=== PATIENT | female | born 1955 | race Caucasian/White ===

== ENCOUNTER 2016-10-11 22:21 | Emergency (ER) | payer OTHER ==
[~2016-10-11] VITALS: Ht 165.1 cm; Wt 102.0 kg
[2016-10-11 22:37] VITALS: Ht 165.1 cm; Wt 102.0 kg
[2016-10-11] MEDS ORDERED: CLIN-73 PO (23:23)
[2016-10-11] MEDS ORDERED: DIPH28.32 TOP (23:24)
[2016-10-11] MEDS ORDERED: HYDR-906 PO (23:38)
[2016-10-11 23:45] VITALS: BP 186/88; PULSE 66; RESP 20; TEMP 98.2
[2016-10-12] MEDS ORDERED: HYDROCODONE/APAP (5/325) TAB PO ONE
[2016-10-12] MEDS ORDERED: IBUPROFEN 600 MG TAB PO ONE
--- NOTE | 2016-10-12 00:02 | ERD ---
ER Documentation Chief Complaint Date/Time DATE: 10/11/16 TIME: 23:58 Chief Complaint left ear pain tonight. +abscess outer ear HPI This is a 60-year-old female presents to the ER with left ear auricle pain. Patient states that she has had external otitis over the last month and has been on multiple drops for this, she is feeling better. Patient has a past medical history of recurrent external otitis infections and she also had a lot of otitis media and even mastoiditis and she was a child. Patient states that her ears are constantly itchy and she scratches at her ear auricle a couple of days ago and noticed that now the area has gotten red, painful to the touch and warm to the touch. Patient denies any fevers or chills. She denies any discharge from her ear. ROS 12 point review of systems was done, all negative except per HPI. Medications Home Meds Active Scripts Hydrocodone/Acetaminophen ([place] 5-325 Tablet) 1 Each Tablet, 1 TAB PO Q6H Y for PAIN, #10 TAB Prov:PAULA CHAVEZ 10/11/16 Diphenhydramine-Zinc* Topical (Diphenhydramine-Zinc* Topical) 1%-28 Gm Cream..g. , 1 APPLIC TOP QID for 3 Days, TUB Prov:PAULA CHAVEZ 10/11/16 Clindamycin Hcl* (Clindamycin Hcl*) 300 Mg Capsule, 300 MG PO TID for 10 Days, CAP Prov:PAULA CHAVEZ 10/11/16 Allergies Allergies: Coded Allergies: No Known Allergy (Unverified , 10/11/16) PMhx/Soc Medical and Surgical Hx: pt denies Medical Hx, pt denies Surgical Hx Hx Alcohol Use: No Hx Substance Use: No Hx Tobacco Use: No Smoking Status: Never smoker Physical Exam Vitals Vital Signs Date Time Temp Pulse Resp B/P Pulse Ox O2 Delivery O2 Flow Rate FiO2 10/11/16 23:45 98.2 66 20 186/88 96 Room Air 10/11/16 22:37 97.7 77 20 162/78 98 Physical Exam GENERAL: The patient is well developed and appropriate for usual state of health , in no apparent distress. HEENT: Atraumatic. Left ear canal is erythematous and swollen. There is an area of warmth redness and swelling to the crura of antihelix. Area is indurated and not fluctuant. There is no mastoid tenderness. There is no TM redness, bulging or distortion of the light reflex. CHEST: Clear to auscultation bilaterally. There are no rales, wheezes or rhonchi. HEART: Regular rate and rhythm. No murmurs, clicks, rubs or gallops. NEURO: Alert and oriented. Results 24 hrs Current Medications Medications (Trade) Dose Ordered Sig/Ani Route PRN Reason Start Time Stop Time Status Last Admin Dose Admin Ibuprofen (Motrin) 600 mg ONCE ONCE PO 10/12/16 00:00 10/12/16 00:00 DC Acetaminophen/ Hydrocodone Bitart ([place] (5/325)) 1 tab ONCE ONCE PO 10/12/16 00:00 10/12/16 00:00 DC 10/11/16 23:41 Procedures/MDM This is a 17-year-old female presents to the ER with left ear swelling redness and warmth to touch. Patient scratched area and area became this way, this is likely an infection. Patient will be treated for cellulitis. She will be sent home with clindamycin. At this time suspicion for systemic infection or sepsis is low patient is afebrile and well-appearing. Patient did not have any evidence of otitis media or mastoiditis on physical examination. She does have external otitis media which she is currently being treated for. Patient is to follow-up with her primary care doctor within 1-2 days or return to ER sooner if symptoms worsen. My medical decision making was shared with the patient she understands and agrees with plan. Departure Diagnosis: Primary Impression: Cellulitis Condition: Stable Patient Instructions: Cellulitis Additional Instructions: Call your primary care doctor TOMORROW for an appointment during the next 1-2 days.See the doctor sooner or return here if your condition worsens before your appointment time. PAULA CHAVEZ Oct 12, 2016 00:02
== END 2016-10-11 23:43 | disposition home or self-care (01) ==
LOC: FTE 22:21
DX: H60.12 Cellulitis of left external ear (principal)
CPT/HCPCS: 99284